=== PATIENT | female | born 1975 | race Caucasian/White ===

== ENCOUNTER 2018-04-21 09:48 | Day surgery (SDC) | payer OTHER, SELFPAY ==
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
[2018-04-21] MEDS: Ketorolac 60 MG/2 ML Vial IM (07:00)
[2018-04-21 10:16] LABS: Internal QC Validated? YES +Cl - CLEAR BKGD; Pregnancy, Urine Negative Negative
[2018-04-21 10:17] VITALS: BP 114/77; PULSE 79; RESP 16; TEMP 36.8; O2SAT 100; BMI 22.4
[2018-04-21 10:17] LABS: Hematocrit 37.7 % (37-47); Hemoglobin 12.4 g/dl (12.0-15.0); Mean Corp Hgb Conc 32.9 g/gl (32-36); Mean Corpuscular Hgb 29.5 pg (27.0-32.0); Mean Corpuscular Volume 89.8 fL (81-99); Mean Platelet Vol. 11.2 fl (6.2-12.0); Platelet Count 174 K/mm3 (150-450); RBC Distribution Width SD 41.7 fl (35.1-43.9); Scan Indicated on CBC? Y/N NO; White Blood Count 5.2 K/mm3 (4.4-11.0)
[2018-04-21] MEDS: Acetaminophen 500 MG Tablet 1000 MG PO (10:31)
--- NOTE | 2018-04-21 12:36 | DCINST_ITS ---
Discharge Diet: No Restrictions Discharge Activity: Return to Normal Activity, May Shower, May Take a Tub Bath - in 2 weeks. Return to work on:: 04/23/18 May shower in (days): 1 May resume sexual activity in: 2 weeks Additional Activity Instructions:: no tub baths for 2 weeks Call your doctor if your incision/area has: Continuous Slow Oozing, Sudden Increased Bleeding, Foul Smelling Discharge Call your doctor if you observe: Fever of 101 or Higher Allergies/Adverse Reactions: Allergies No Known Allergies Allergy (Verified 04/21/18 10:15) Medications to take at Discharge Folic Acid/Multivit,Iron,[place] [One Daily For Women Tablet] 1 each PO DAILY 04/14/18 Ibuprofen [Motrin] 600 mg PO Q6H PRN #60 tablet 04/21/18 The following prescriptions were given: Ibuprofen [Motrin] 600 mg PO Q6H PRN #60 tablet PRN Reason: Pain Primary Care Physician: Addison Veras MD [Primary Care Provider] - Test Results: Test results from this visit will be discussed in further detail at your follow- up appointment, if applicable. Please Follow Up With: Fabiola Reddy MD - [phone] When: 2-4 weeks or as needed
--- NOTE | 2018-04-21 12:55 | OP.PCM_ITS ---
Report of Operation Date of Procedure: 04/21/18 Pre-Operative Diagnosis: Menorrhagia Post-Operative Diagnosis: Same Surgery/Procedure Performed:: Hysteroscopy with Bebe endometrial ablation Description of Surgical Findings:: Normal-appearing endometrial cavity. Both tubal ostia were identified. Normal cervix and vagina. career development specialist: None Type of Anesthesia:: General Special Medications: None Specimen's removed: None Drains: None Estimated Blood Loss (mL): 10 Fluids Replaced: 1300cc lr Description of Procedure: The patient was taken to the OR where she was prepped and draped in dorsal lithotomy position. The weighted speculum was placed in the vagina and the anterior lip of the cervix was grasped with a single-tooth tenaculum. A paracervical block was administered with 1% lidocaine with 1-100,000 epinephrine solution. The cervix was dilated serially with Hegar dilators. The 5mm hysteroscope was placed into the uterine cavity and the above findings were noted. Bilateral tubal ostia were identified. The uterus sounded to 8cm and the cervical length was 4 cm. The endometrial cavity length was 4cm. The hysteroscope was removed. The Bebe device was set to 4cm. The instrument was then seated into the endometrial cavity and the indicator was in the green. The cervical seal balloon was inflated and the uterine integrity test was passed. The ablation procedure was initiated and completed without interruption. During the ablation procedure gentle traction was held on the tenaculum and the Bebe device was held up against the uterine fundus. When the ablation procedure was completed the Bebe was removed. The tenaculum was removed and the tenaculum site was noted to be hemostatic. All sponge and needle counts were correct. A vaginal sweep was performed by . The patient was awakened and taken to the recovery room in stable condition. Hysteroscopic ins: 1500cc normal saline Hysteroscopic outs:120cc Findings: Endometrial cavity: Normal, no fibroids or polyps noted Cervix: Normal Vagina: Normal Grafts/Implants Used: none - Complications None - Admit VTE Documentation VTE Present on Admission: No VTE Mechan Device Prophylaxis: SCD's VTE Pharm Prophylaxis ordered?: No
[2018-04-21 13:01] VITALS: BP 114/77; BP 122/76; PULSE 73; RESP 16; TEMP 37.1; O2SAT 99
[2018-04-21 13:06] VITALS: BP 114/77; BP 115/78; PULSE 68; RESP 16; O2SAT 99
[2018-04-21 13:11] VITALS: BP 113/75; BP 114/77; PULSE 72; RESP 16; O2SAT 100
[2018-04-21 13:16] VITALS: BP 114/77; BP 121/83; PULSE 71; RESP 16; TEMP 37; O2SAT 100
[2018-04-21 13:58] VITALS: BP 114/77
== END 2018-04-21 13:59 | disposition home or self-care (01) ==
LOC: SDC 09:49 → AC 09:52
PROVIDERS: Family Provider Family Medicine; PCP Family Medicine; Referring Provider Obstetrics & Gynecology; Visit Provider Obstetrics & Gynecology
PROC: 0U5B8ZZ Destruction of Endometrium, Via Natural or Artificial Opening Endoscopic (ICD-10-PCS; CPT 58558; principal; 2018-04-21 10:55)
DX: N92.0 Excessive and frequent menstruation with regular cycle (principal)
CPT/HCPCS: 00952; 58563; 36415; 81025; 85027; J7120; J2405

== ENCOUNTER 2022-10-12 17:30 | Outpatient (RCR) | payer SELFPAY | END 2022-10-12 23:59 | LOC: NS 17:30 | PROVIDERS: PCP Family Medicine | DX: Z71.3 Dietary counseling and surveillance (principal); E11.9 Type 2 diabetes mellitus without complications ==